=== PATIENT | female | born 1990 | race Caucasian/White ===

== ENCOUNTER 2021-05-25 14:52 | Emergency (ER) | payer OTHER ==
[~2021-05-25] VITALS: Ht 167.6 cm; Wt 85.7 kg
[2021-05-25] MEDS ORDERED: SUMA50TA2 PO (15:30)
[2021-05-25] MEDS ORDERED: METO1TAB87 PO (15:30)
[2021-05-25] MEDS ORDERED: MELO15TA28 PO (15:30)
[2021-05-25] MEDS ORDERED: MONT10TA10 PO (15:30)
[2021-05-25] MEDS ORDERED: ZONI100C17 PO (15:30)
[2021-05-25] MEDS ORDERED: LEXA1TAB2 PO (15:30)
[2021-05-25] MEDS ORDERED: AMBI5TAB PO (15:30)
[2021-05-25] MEDS ORDERED: LAMO100T80 PO (15:30)
[2021-05-25] MEDS ORDERED: MACR100C43 PO (15:30)
[2021-05-25 15:44] LABS: BASO # 0.1 10^3/uL (0.0-0.2); BASO % 0.8 % (0.0-1.0); EOS # 0.2 10^3/uL (0.0-0.5); EOS % 2.8 % (0.0-3.0); HEMATOCRIT 36.5 % (36.0-47.0); HEMOGLOBIN 12.5 g/dl (12.0-15.5); LYMPH # 2.6 10^3/uL (1.5-5.0); LYMPH % 40.4 % (24.0-44.0); MEAN CORPUSCULAR HEMOGLOBIN 34.2 pg (27.0-33.0); MEAN CORPUSCULAR HGB CONC 34.2 g/dl (32.0-36.5); MEAN CORPUSCULAR VOLUME 99.7 fl (80.0-96.0); MONO # 0.6 10^3/uL (0.0-0.8); MONO % 8.8 % (2.0-8.0); NEUTROPHILS # 3.1 10^3/uL (1.5-8.5); NEUTROPHILS % 46.9 % (36.0-66.0); PLATELET COUNT, AUTOMATED 266 10^3/uL (150-450); RED BLOOD COUNT 3.66 10^6/uL (4.00-5.40); WHITE BLOOD COUNT 6.5 10^3/uL (4.0-10.0)
[2021-05-25] MEDS ORDERED: ONDANSETRON 4MG/2ML VIAL IV ONE (16:00)
--- NOTE | 2021-05-25 16:26 | REP ---
INDICATION: fall with head injury; neck pain. COMPARISON: None. TECHNIQUE: CT BRAIN PERFORMED IN THE AXIAL PLANE. CORONAL RECONSTRUCTION IMAGES ARE PERFORMED. FINDINGS: THE VENTRICLES ARE NORMAL IN SIZE AND POSITION. THERE IS NO MIDLINE SHIFT OR MASS EFFECT. LOJA-WHITE DIFFERENTIATION IS WELL MAINTAINED. THERE IS NO ACUTE INTRACRANIAL HEMORRHAGE OR EXTRA-AXIAL FLUID COLLECTION. BONE WINDOW EXAMINATION IS UNREMARKABLE. VISUALIZED MASTOID AIR CELLS AND PARANASAL SINUSES ARE CLEAR. IMPRESSION: NEGATIVE NONCONTRAST CT BRAIN. <Electronically signed by Simba Vieyra > 05/25/21 [id number]
--- NOTE | 2021-05-25 16:31 | REP ---
INDICATION: fall with head injury; neck pain. COMPARISON: None. TECHNIQUE: Axial CT images were obtained from the skull base to the thoracic inlet. 2D sagittal and coronal reconstructions were performed. FINDINGS: There is loss of the normal cervical lordosis and torticollis to the left. There is degenerative disc disease, C6-7 and C7-T1 with narrowing of the disc spaces and small marginal osteophytes. There is no evidence of acute bony or ligamentous injury. The facet joints are normal. The atlantodental joint is normal. There is mucoperiosteal thickening of the left maxillary sinus. The lung apices are clear. There are no significant soft tissue abnormalities. IMPRESSION: 1. Degenerative disc disease with cervical spasm. 2. No evidence of acute bony or ligamentous injury. 3. Chronic left maxillary sinusitis. <Electronically signed by Delmar Gray > 05/25/21 [id number]
[2021-05-25 16:32] LABS: BLOOD UREA NITROGEN 11 MG/DL (7-18); CALCIUM LEVEL 8.9 MG/DL (8.5-10.1); CARBON DIOXIDE LEVEL 25 MEQ/L (21-32); CHLORIDE LEVEL 114 MEQ/L (98-107); CREATININE FOR GFR 1.03 MG/DL (0.55-1.30); GLOMERULAR FILTRATION RATE > 60.0 (>60); GLUCOSE, FASTING 87 MG/DL (70-100); POTASSIUM SERUM 4.3 MEQ/L (3.5-5.1); SODIUM LEVEL 143 MEQ/L (136-145); THYROID STIMULATING HORMONE 0.656 uIU/ML (0.358-3.740)
[2021-05-25] MEDS ORDERED: KETOROLAC 30 MG/ML 1ML VIAL IV ONE (17:25)
[2021-05-25] MEDS ORDERED: KETOROLAC 30 MG/ML 1ML VIAL As Ordered ONE (17:26)
[2021-05-25] MEDS ORDERED: ACETAMINOPHEN 325 MG TAB PO ONE (17:40)
[2021-05-25 17:45] VITALS: BP 114/59
--- NOTE | 2021-05-26 09:45 | ED PDOC ---
Post-Departure Follow-Up radiology rpeor tfaxed to [facility] Gayatri Hylton MD May 26, 2021 09:45
== END 2021-05-25 18:05 | disposition home or self-care (01) ==
LOC: M ED 14:52
DX: R07.9 Chest pain, unspecified (principal); R55 Syncope and collapse; S09.90XA Unspecified injury of head, initial encounter; W19.XXXA Unspecified fall, initial encounter; Y92.9 Unspecified place or not applicable; Y93.9 Activity, unspecified; Y99.9 Unspecified external cause status; F31.9 Bipolar disorder, unspecified; F43.10 Post-traumatic stress disorder, unspecified; R56.9 Unspecified convulsions; M50.30 Other cervical disc degeneration, unspecified cervical region; M62.838 Other muscle spasm; J32.9 Chronic sinusitis, unspecified; Z88.8 Allergy status to other drugs, medicaments and biological substances
CPT/HCPCS: 70450; 72125; 80048; 80203; 84443; 84702; 85025; 93041; 94760; 96374; 99285; J2405

== ENCOUNTER 2021-07-31 04:03 | Emergency (ER) | payer OTHER ==
[~2021-07-31] VITALS: Ht 167.6 cm; Wt 82.3 kg
[~2021-07-31 04:03] MED LIST: AMBI5TAB PO; LAMO100T80 PO; LEXA1TAB2 PO; MACR100C43 PO; MELO15TA28 PO; METO1TAB87 PO; MONT10TA10 PO; SUMA50TA2 PO; ZONI100C17 PO
[2021-07-31 04:04] VITALS: BP 112/77
[2021-07-31] MEDS ORDERED: ALBU8.5H (04:12)
[2021-07-31] MEDS ORDERED: TIZA2TA (04:12)
[2021-07-31] MEDS ORDERED: PRED20TA (04:12)
== END 2021-07-31 04:19 | disposition left against medical advice (07) ==
LOC: M ED 04:03
DX: Z53.21 Procedure and treatment not carried out due to patient leaving prior to being seen by health care provider (principal)

== ENCOUNTER → 2022-02-25 | Outpatient (REF) ==
[~2022-02-25] MED LIST changes: +ALBU8.5H; +LATU20TA PO; -MONT10TA10 PO; +MONT10TA97 PO; +PRED20TA; +TIZA2TA; +TRAZ-252 PO
== END ==
LOC: M LAB 13:14
PROVIDERS: ATTEND Nurse Practitioner Adult Health
DX: Z20.822 Contact with and (suspected) exposure to COVID-19 (principal)

== ENCOUNTER 2022-04-04 10:55 | Emergency (ER) | payer OTHER ==
[~2022-04-04] VITALS: Ht 170.2 cm; Wt 75.0 kg
[~2022-04-04 10:55] MED LIST changes: -ZONI100C17 PO; +ZONI100C67 PO
[2022-04-04] MEDS ORDERED: NS 1,000 ML IV ONE (11:20)
[2022-04-04 12:39] LABS: BASO # 0.1 10^3/uL (0.0-0.2); BASO % 1.1 % (0.0-1.0); EOS # 0.6 10^3/uL (0.0-0.5); EOS % 6.9 % (0.0-3.0); HEMATOCRIT 33.8 % (36.0-47.0); HEMOGLOBIN 11.4 g/dl (12.0-15.5); LYMPH % 36.9 % (24.0-44.0); MEAN CORPUSCULAR HGB CONC 33.7 g/dl (32.0-36.5); MONO # 0.5 10^3/uL (0.0-0.8); MONO % 6.1 % (2.0-8.0); NEUTROPHILS # 3.9 10^3/uL (1.5-8.5); NEUTROPHILS % 48.8 % (36.0-66.0); PLATELET COUNT, AUTOMATED 242 10^3/uL (150-450); RED BLOOD COUNT 3.45 10^6/uL (4.00-5.40); WHITE BLOOD COUNT 8.1 10^3/uL (4.0-10.0)
[2022-04-04 12:59] LABS: BLOOD UREA NITROGEN 4 MG/DL (7-18); CALCIUM LEVEL 8.8 MG/DL (8.5-10.1); CARBON DIOXIDE LEVEL 23 MEQ/L (21-32); CHLORIDE LEVEL 113 MEQ/L (98-107); CREATININE FOR GFR 1.32 MG/DL (0.55-1.30); GLOMERULAR FILTRATION RATE 49.7 (>60); GLUCOSE, FASTING 87 MG/DL (70-100); POTASSIUM SERUM 3.9 MEQ/L (3.5-5.1); SODIUM LEVEL 143 MEQ/L (136-145)
[2022-04-04 13:00] LABS: HCG, SERUM QUALITATIVE NEGATIVE (NEGATIVE)
[2022-04-04] MEDS ORDERED: NITR1CAP11 PO (14:14)
[2022-04-04 14:36] VITALS: BP 109/60
== END 2022-04-04 14:39 | disposition home or self-care (01) ==
LOC: M ED 10:55 → EDBD 10:55 → M ED 14:39
DX: N39.0 Urinary tract infection, site not specified (principal); R00.1 Bradycardia, unspecified; D64.9 Anemia, unspecified; F41.9 Anxiety disorder, unspecified; F31.9 Bipolar disorder, unspecified; F17.200 Nicotine dependence, unspecified, uncomplicated; Z79.899 Other long term (current) drug therapy; Z88.8 Allergy status to other drugs, medicaments and biological substances

== ENCOUNTER → 2022-12-23 | Outpatient (REF) ==
[~2022-12-23] MED LIST changes: +FERR325T3 PO; +NITR1CAP11 PO
== END ==
LOC: M EMP 13:04
PROVIDERS: ATTEND Family Medicine
DX: Z11.52 Encounter for screening for COVID-19 (principal)